=== PATIENT | female | born 1990 | race Caucasian/White ===

== ENCOUNTER 2019-03-22 20:01 | Emergency (ER) | payer SELFPAY ==
[2019-03-22 20:20] VITALS: BP 147/93
[2019-03-22] MEDS ORDERED: HYDROmorphone 1 MG/ML Syringe IVPUSH ONE (21:55)
[2019-03-22] MEDS ORDERED: Ketorolac 30 MG/ML SDV IVPUSH STA (21:55)
[2019-03-22] MEDS ORDERED: Tamsulosin 0.4 MG Cap.ER PO ONE (21:55)
[2019-03-22] MEDS ORDERED: Ondansetron 4 MG/2 ML SDV IVPUSH ONE (21:55)
--- NOTE | 2019-03-22 21:58 | EDM.PDOC ---
ED HPI GENERAL MEDICAL PROBLEM - General Chief Complaint: Abdominal Pain Stated Complaint: ABDOMINAL PAIN Time Seen by Provider: 03/22/19 21:20 Source of Information: Reports: Patient, RN Notes Reviewed, Other (Friend) History Limitations: Reports: No Limitations - History of Present Illness INITIAL COMMENTS - FREE TEXT/NARRATIVE: The patient states that she developed sudden onset left flank pain, sharp in character, and suprapubic cramps around 17:00 this evening. The pain is constant , and she has not identified any modifiers. She has had nausea, but no emesis. No associated fever, constipation, diarrhea, or urinary symptoms. No gross hematuria. No vaginal bleeding. The patient states that her symptoms are similar to when she had a ruptured ovarian cyst, except that that pain was intermittent, while this pain is constant. The patient has not taken any [id number] home remedies to treat her symptoms. The patient does not have a PCP, although has seen Princess Montes for gynecologic issues. Left Lower Abdomen Pain Score (Numeric/FACES): 8 - Related Data Allergies Allergy/AdvReac Type Severity Reaction Status Date / Time prednisone Allergy Severe Chest Verified 03/22/19 20:20 Presssure sulfamethoxazole AdvReac Severe Vomiting Verified 03/22/19 20:20 [From Bactrim] trimethoprim [From Bactrim] AdvReac Severe Vomiting Verified 03/22/19 20:20 hydrocodone AdvReac Intermediate Depression Verified 03/22/19 20:20 Home Meds: Home Meds Ondansetron [Zofran ODT] 1 tab PO Q8H PRN #10 tab.dis 03/22/19 [Rx] Tamsulosin HCl [Flomax] 1 cap PO QPM PRN #5 cap.er.24h 03/22/19 [Rx] Nitrofurantoin Monohyd/M-Cryst [Macrobid 100 mg Capsule] 1 cap PO Q12H #10 capsule 03/23/19 [Rx] traMADol [Ultram] 1 - 2 tab PO Q6H PRN #20 tab 03/23/19 [Rx] 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: Polycystic Ovaries (untreated) Endocrine/Metabolic History: Reports: Obesity/BMI 30+ - Past Surgical History HEENT Surgical History: Reports: Oral Surgery (dental extractions) Social & Family History - Family History Cardiac: Reports: Hypertension Endocrine/Metabolic: Reports: Diabetes, type II - Tobacco Use Smoking Status *Q: Current Every Day Smoker Years of Tobacco use: 15 Packs/Tins Daily: 1 - Caffeine Use Caffeine Use: Reports: Soda - Alcohol Use Alcohol Use History: Yes Alcohol Use Frequency: Socially - Recreational Drug Use Recreational Drug Use: Yes Drug Use in Last 12 Months: No Recreational Drug Type: Reports: Marijuana/Hashish (last smoked around 2008) - Living Situation & Occupation Living situation: Reports: , Alone Occupation: Unemployed ED ROS GENERAL - Review of Systems Review Of Systems: ROS reveals no pertinent complaints other than HPI. ED EXAM, RENAL/ - Physical Exam Exam: See Below Exam Limited By: No Limitations General Appearance: Alert, WD/WN, Mild Distress (Appears uncomfortable) Eye Exam: Bilateral Eye: EOMI, Normal Inspection Ears: Normal External Exam, Hearing Grossly Normal Nose: Normal Inspection Throat/Mouth: Normal Inspection, Normal Lips, Normal Voice, No Airway Compromise Head: Atraumatic, Normocephalic Neck: Normal Inspection, Full Range of Motion Respiratory/Chest: No Respiratory Distress, Lungs Clear, Normal Breath Sounds, No Accessory Muscle Use Cardiovascular: Normal Peripheral Pulses, Regular Rate, Rhythm, No Gallop, No JVD, No Murmur, No Rub GI/Abdominal: Normal Bowel Sounds, Soft, Non-Tender (including suprapubically), No Organomegaly, No Distention, No Abnormal Bruit, No Mass, Other (Obese) (Female) Exam: Deferred Rectal (Female) Exam: Deferred Back Exam: Normal Inspection, Full Range of Motion. No: CVA Tenderness (L), CVA Tenderness (R) Extremities: Normal Inspection, Normal Range of Motion, No Pedal Edema, Normal Capillary Refill Neurological: Alert, Oriented, Normal Cognition, No Motor/Sensory Deficits Psychiatric: Normal Affect Skin Exam: Warm, Dry, Intact, Normal Color, No Rash Course - Vital Signs Last Recorded V/S: Last Vital Signs Temp 36.1 C 03/22/19 20:16 Pulse 93 03/22/19 20:16 Resp 14 03/22/19 20:16 BP 147/93 H 03/22/19 20:16 Pulse Ox 99 03/22/19 20:16 - Orders/Labs/Meds Orders: Active Orders 24 hr Category Date Time Status Strain Urine [RC] ASDIRECTED Care 03/22/19 21:55 Active Abdomen Pelvis wo Cont [CT] Stat Exams 03/22/19 21:55 Taken CULTURE URINE [RM] Stat Lab 03/22/19 21:22 Received Labs: Laboratory Tests 03/22/19 03/22/19 03/22/19 Range/Units 22:10 22:10 22:54 WBC 16.58 H (3.98-10.04) K/mm3 RBC 5.35 H (3.98-5.22) M/mm3 Hgb 15.7 (11.2-15.7) gm/L Hct 47.2 H (34.1-44.9) % MCV 88.2 (79.4-94.8) fl MCH 29.3 (25.6-32.2) pg MCHC 33.3 (32.2-35.5) g/dl RDW Std Deviation 43.1 (36.4-46.3) fL Plt Count 280 (182-369) K/mm3 MPV 11.5 (9.4-12.3) fl Neutrophils % (Manual) 81 H (40-60) % Band Neutrophils % 3 (0-10) % Lymphocytes % (Manual) 10 L (20-40) % Atypical Lymphs % 0 % Monocytes % (Manual) 5 (2-10) % Eosinophils % (Manual) 0 L (0.7-5.8) % Basophils % (Manual) 1 (0.1-1.2) Toxic Granulation 1+ slight Platelet Estimate Adequate Plt Morphology Comment Normal RBC Morph Comment Normal Sodium 138 (136-145) mEq/L Potassium 3.9 (3.5-5.1) mEq/L Chloride 102 (98-107) mEq/L Carbon Dioxide 24 (21-32) mEq/L Anion Gap 15.9 H (5-15) BUN 9 (7-18) mg/dL Creatinine 1.1 H (0.55-1.02) mg/dL Est Cr Clr Drug Dosing 75.44 mL/min Estimated GFR (MDRD) 58 (>60) mL/min BUN/Creatinine Ratio 8.2 L (14-18) Glucose 121 H (74-106) mg/dL Calcium 9.2 (8.5-10.1) mg/dL Total Bilirubin 0.9 (0.2-1.0) mg/dL AST 34 (15-37) U/L ALT 56 (14-59) U/L Alkaline Phosphatase 110 (46-116) U/L Total Protein 8.1 (6.4-8.2) g/dl Albumin 4.1 (3.4-5.0) g/dl Globulin 4.0 gm/dL Albumin/Globulin Ratio 1.0 (1-2) Urine Color Yellow (Yellow) Urine Appearance Slt cloudy H (Clear) Urine pH 5.5 (5.0-8.0) Ur Specific [place] > or = 1.030 (1.005-1.030) Urine Protein 2+ H (Negative) Urine Glucose (UA) Negative (Negative) Urine Ketones Trace H (Negative) Urine Occult Blood 2+ H (Negative) Urine Nitrite Negative (Negative) Urine Bilirubin 1+ H (Negative) Urine Urobilinogen 0.2 (0.2-1.0) Ur Leukocyte Esterase 2+ H (Negative) Urine RBC 30-40 H (0-5) /hpf Urine WBC >100 H (0-5) /hpf Urine WBC Clumps Moderate (NOT SEEN) /hpf Ur Squamous Epith Cells 5-10 H (0-5) /hpf Calcium Oxalate Crystal Moderate H (NONE) Urine Bacteria Moderate H (FEW) /hpf Hyaline Casts 0-5 (0-5) /lpf Urine Mucus Many H (FEW) /hpf Urine HCG, Qual (NEGATIVE) 03/22/19 Range/Units 22:54 WBC (3.98-10.04) K/mm3 RBC (3.98-5.22) M/mm3 Hgb (11.2-15.7) gm/L Hct (34.1-44.9) % MCV (79.4-94.8) fl MCH (25.6-32.2) pg MCHC (32.2-35.5) g/dl RDW Std Deviation (36.4-46.3) fL Plt Count (182-369) K/mm3 MPV (9.4-12.3) fl Neutrophils % (Manual) (40-60) % Band Neutrophils % (0-10) % Lymphocytes % (Manual) (20-40) % Atypical Lymphs % % Monocytes % (Manual) (2-10) % Eosinophils % (Manual) (0.7-5.8) % Basophils % (Manual) (0.1-1.2) Toxic Granulation Platelet Estimate Plt Morphology Comment RBC Morph Comment Sodium (136-145) mEq/L Potassium (3.5-5.1) mEq/L Chloride (98-107) mEq/L Carbon Dioxide (21-32) mEq/L Anion Gap (5-15) BUN (7-18) mg/dL Creatinine (0.55-1.02) mg/dL Est Cr Clr Drug Dosing mL/min Estimated GFR (MDRD) (>60) mL/min BUN/Creatinine Ratio (14-18) Glucose (74-106) mg/dL Calcium (8.5-10.1) mg/dL Total Bilirubin (0.2-1.0) mg/dL AST (15-37) U/L ALT (14-59) U/L Alkaline Phosphatase (46-116) U/L Total Protein (6.4-8.2) g/dl Albumin (3.4-5.0) g/dl Globulin gm/dL Albumin/Globulin Ratio (1-2) Urine Color (Yellow) Urine Appearance (Clear) Urine pH (5.0-8.0) Ur Specific [place] (1.005-1.030) Urine Protein (Negative) Urine Glucose (UA) (Negative) Urine Ketones (Negative) Urine Occult Blood (Negative) Urine Nitrite (Negative) Urine Bilirubin (Negative) Urine Urobilinogen (0.2-1.0) Ur Leukocyte Esterase (Negative) Urine RBC (0-5) /hpf Urine WBC (0-5) /hpf Urine WBC Clumps (NOT SEEN) /hpf Ur Squamous Epith Cells (0-5) /hpf Calcium Oxalate Crystal (NONE) Urine Bacteria (FEW) /hpf Hyaline Casts (0-5) /lpf Urine Mucus (FEW) /hpf Urine HCG, Qual Negative (NEGATIVE) Meds: Medications Discontinued Medications Generic Name Dose Route Start Last Admin Trade Name Freq PRN Reason Stop Dose Admin Hydromorphone HCl 1 mg 03/22/19 21:55 03/22/19 22:12 Dilaudid IVPUSH 03/22/19 21:56 1 mg ONETIME ONE Administration Sodium Chloride 1,000 mls @ 150 mls/hr 03/22/19 22:00 03/22/19 22:08 Normal Saline IV 150 mls/hr ASDIRECTED BRANDIE Administration Ketorolac Tromethamine 30 mg 03/22/19 21:55 03/22/19 22:10 Toradol IVPUSH 03/22/19 21:56 30 mg ONETIME STA Administration Nitrofurantoin Macrocrystals 100 mg 03/23/19 00:09 03/23/19 00:18 Macrobid PO 03/23/19 00:10 100 mg ONETIME ONE Administration Ondansetron HCl 4 mg 03/22/19 21:55 03/22/19 22:09 Zofran IVPUSH 03/22/19 21:56 4 mg ONETIME ONE Administration Tamsulosin HCl 0.4 mg 03/22/19 21:55 03/22/19 22:10 Flomax PO 03/22/19 21:56 0.4 mg ONETIME ONE Administration - Re-Assessments/Exams Free Text/Narrative Re-Assessment/Exam: 03/22/19 21:57 Although the patient's physical exam is benign, her history is consistent with a left ureterolith. A urinalysis and urine test have been ordered, along with blood work and a CT scan of the abdomen and pelvis without contrast. In the meantime, the patient will receive IV Dilaudid, oral Flomax, IV fluid, IV Toradol, and IV Zofran. 03/22/19 23:38 CT of the abdomen and pelvis without contrast is read by Maximiliano as: 3 mm left UPJ stone causing mild hydronephrosis. Many punctate sclerotic bone lesions most likely bone islands. 03/22/19 23:47 Test results discussed with the patient and her friend. I don't have the final results of the patient's urinalysis yet, but, presuming that she does not have a UTI, I will discharge the patient home with prescriptions for Hartwell, Flomax, and Zofran. I would like her to stay adequately hydrated and strain all of her urine. I will give her a number for Urologist, however, I explained to the patient that at 3 mm, the patient will likely pass this stone on her own. 03/23/19 00:10 The patient's urinalysis is consistent with a UTI. I have ordered a urine culture. The patient states that she is allergic to trimethoprim/ sulfamethoxazole. I will therefore start her on oral nitrofurantoin, and prescribe a five-day course. I will refer her to the clinic, to check on the urine culture results, on , 03/26/2019. 03/23/19 00:40 Informed by Aurea AGUILA that the patient would prefer a different prescription then Hartwell, as she reports an allergy to Hartwell. The chart indicates nausea and vomiting, which can occur with any opioid, nevertheless, I will cancel her prescription for Hartwell and prescribe tramadol. Departure - Departure Time of Disposition: 23:48 Disposition: Home, Self-Care 01 Condition: Good Clinical Impression: Ureterolithiasis - Discharge Information *PRESCRIPTION DRUG MONITORING PROGRAM REVIEWED*: Not Applicable *COPY OF PRESCRIPTION DRUG MONITORING REPORT IN PATIENT ANOOP: Not Applicable Prescriptions: Nitrofurantoin Monohyd/M-Cryst [Macrobid 100 mg Capsule] 1 cap PO Q12H #10 capsule Ondansetron [Zofran ODT] 1 tab PO Q8H PRN #10 tab.dis PRN Reason: Nausea/Vomiting Tamsulosin HCl [Flomax] 1 cap PO QPM PRN #5 cap.er.24h PRN Reason: Pain traMADol [Ultram] 1 - 2 tab PO Q6H PRN #20 tab PRN Reason: Pain (Severe 7-10) Instructions: Kidney Stones, [id number] Referrals: Nghia Villareal MD [Ordering Only Provider] - Aura Warner PA [Physician Dispensing Operator] - Forms: ED Department Discharge Additional Instructions: You were seen in the emergency room for sudden onset left flank pain radiating to your lower abdomen. Workup in the ER included blood work, a urinalysis, a urine test, and a CT scan of your abdomen and pelvis without contrast. Your workup found that you have a 3 mm stone in your left ureter. This is the cause of your pain. Based on the size and location of the stone, you will most likely pass it on your own. In addition to the stone, your urinalysis was consistent with a urinary tract infection. You have been started on the antibiotic nitrofurantoin (Macrobid). Take one tablet of nitrofurantoin every 12 hours, starting tomorrow morning, Saturday, 03/23, as prescribed. Finish the entire 5 day course unless told otherwise by a doctor. Take scyn-trs-btptlav ibuprofen, 2-3 tablets (400-600 mg) every 8 hours, with food, as needed for discomfort. You may take 1-2 tablets of the opioid pain reliever Hartwell up to every 6 hours, as needed for pain not relieved by ibuprofen. If you take Hartwell, do not drive for 10 hours afterwards. Hartwell may cause constipation, so consider taking a stool softener. Take one tablet of the anti-spasm medicine tamsulosin (Flomax) every evening, starting tomorrow evening, 03/23/2019, as needed for pain. Dissolve one tablet of the anti-nausea medicine Zofran on your tongue up to every 8 hours, as needed for nausea/vomiting. Stay adequately hydrated and strain all of your urine. If you capture the stone , take it to the clinic for analysis. Follow-up with Aura Warner, or one of the other providers in the clinic, this coming , 03/26/2019, in order to have them check on the urine culture results, to make sure that you are on the correct antibiotic. If you are still having left flank pain by the end of this coming week, please follow-up with the Urologist Dr. Nghia Villareal, in [place], for further evaluation. If any other problems, please do not hesitate to return to the ER. - My Orders Last 24 Hours: My Active Orders 03/22/19 21:22 CULTURE URINE [RM] Stat 03/22/19 21:55 Strain Urine [RC] ASDIRECTED Abdomen Pelvis wo Cont [CT] Stat - Assessment/Plan Last 24 Hours: My Active Orders 03/22/19 21:22 CULTURE URINE [RM] Stat 03/22/19 21:55 Strain Urine [RC] ASDIRECTED Abdomen Pelvis wo Cont [CT] Stat
[2019-03-22] MEDS ORDERED: Sodium Chloride 0.9% 1,000 ML IV SCH (22:00)
[2019-03-23] MEDS ORDERED: Nitrofurantoin Monohydrate/Macrocrystalline 100 MG Cap PO ONE (00:09)
--- NOTE | 2019-03-23 11:18 | CT ---
CT abdomen and pelvis Technique: Multiple axial sections were obtained from above the dome of the diaphragm inferiorly through the pubic symphysis. Intravenous and oral contrast was not utilized. Study has been performed as a ureteral stone protocol. Comparison: No previous abdominal CT exam. Findings: 4 mm calcification is identified within the proximal left ureter near the UPJ. This causes proximal hydronephrosis. No other abnormal calcifications are seen along the course of the ureters. No abnormal calcifications are identified within the kidneys. Small portion of the visualized lung bases show nothing acute. Liver contains no focal abnormality. Spleen appears within normal limits. Adrenal glands show no nodule. Pancreas is within normal limits. Gallbladder contains no calcified gallstones. Aorta shows no aneurysm. No retroperitoneal adenopathy or mesenteric abnormalities are seen. No pelvic mass or adenopathy is seen. No free fluid or inflammatory change is seen. Appendix is seen and is normal in size. 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 Impression: 1. Obstructing 4 mm stone within the proximal left ureter near the UPJ. This finding causes mild proximal hydronephrosis. 2. Incidental bone findings as noted above. 3. Noncontrast CT study of the abdomen and pelvis. Diagnostic code #3 I agree with preliminary report from [facility], finalized on 03/23/19, 12:30 AM Central Time
== END 2019-03-23 00:52 | disposition home or self-care (01) ==
LOC: JD.ED 20:01
DX: N13.2 Hydronephrosis with renal and ureteral calculous obstruction (principal); F17.210 Nicotine dependence, cigarettes, uncomplicated; Z88.8 Allergy status to other drugs, medicaments and biological substances; Z88.1 Allergy status to other antibiotic agents; Z88.2 Allergy status to sulfonamides; Z88.5 Allergy status to narcotic agent; Z79.899 Other long term (current) drug therapy
CPT/HCPCS: 36415; 74176; 80053; 81001; 81025; 85007; 85027; 87086; 96361; 96374; 96375; 99284; A9270; J1170; J1885; J2405; J7040

== ENCOUNTER 2019-03-24 15:04 | Emergency (ER) | payer SELFPAY ==
[2019-03-24 15:16] VITALS: BP 110/77
[2019-03-24] MEDS ORDERED: Ondansetron 4 MG/2 ML SDV IVPUSH ONE ×2 (15:19→16:46)
[2019-03-24] MEDS ORDERED: Sodium Chloride 0.9% 500 ML IV ONE (15:20)
[2019-03-24] MEDS ORDERED: Sodium Chloride 0.9% 1,000 ML IV ONE (15:38)
[2019-03-24] MEDS ORDERED: Sodium Chloride 0.9% 10 ML Syringe FLUSH PRN (15:39)
[2019-03-24] MEDS ORDERED: Ketorolac 30 MG/ML SDV IVPUSH ONE (15:39)
[2019-03-24] MEDS ORDERED: cefTRIAXone 2 GM in Sodium Chloride 0.9% 100 ML IV STA (16:33)
[2019-03-24] MEDS ORDERED: Metoclopramide 10 MG/2 ML SDV IVPUSH ONE (17:22)
--- NOTE | 2019-03-24 17:54 | CT ---
CT abdomen and pelvis Technique: Multiple axial sections were obtained from above the dome of diaphragm inferiorly through the pubic symphysis. Intravenous and oral contrast not utilized. Study has been performed as a ureteral stone protocol. Findings: Small 4 mm calcification is identified within the left lung base. Fatty infiltration is seen within the liver. Spleen appears normal. Gallbladder contains no calcified gallstones. Pancreas is normal. Adrenal glands show no nodule. Small obstructing stone is again noted within the proximal left ureter near the UPJ. This measures about 4 mm in size and is unchanged in position from previous exam. No other abnormal calcifications are seen along the course of the ureters. No abnormal calcifications are seen within the kidneys. No retroperitoneal adenopathy or mesenteric abnormalities are seen. No pelvic mass or adenopathy is seen. No free fluid or acute inflammatory change is seen. Bone window settings were reviewed which shows mild degenerative change within the spine. 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 Impression: 1. Stable appearing proximal 4 mm obstructing stone within the proximal left ureter. No change in location of this stone is seen from previous CT exam. 2. 4 mm nodule within the left lung base. If patient is not a smoker, this can be ignored. If patient is a smoker, recommend repeat noncontrast chest CT study in one year. 3. Fatty infiltration within the liver. 4. Incidental bony findings. Diagnostic code #3
[2019-03-24] MEDS ORDERED: Piperacillin/Tazobactam 4.5 GM in Sodium Chloride 0.9% 100 ML IV STA (18:15)
--- NOTE | 2019-03-24 18:18 | EDM.PDOC ---
ED HPI GENERAL MEDICAL PROBLEM - General Chief Complaint: Gastrointestinal Problem Stated Complaint: VOMITING Time Seen by Provider: 03/24/19 15:37 Source of Information: Reports: Patient History Limitations: Reports: No Limitations - History of Present Illness INITIAL COMMENTS - FREE TEXT/NARRATIVE: 28-year-old female presents for evaluation and treatment of nausea, vomiting and diarrhea. Patient was seen in the ER 2 days ago. She is fond of urinary tract infection and kidney stone. She started on Macrobid. States she's been taking this as prescribed. Does not feel that the stone has passed as she continues to have pain to the left flank. She now has abdominal pain as well. She's had 6 or 7 episodes of diarrhea today, no blood in the stool. She denies any dysuria or hematuria. Reports feeling feverish and chilled. Patient history of PCOS. Duration: Day(s): (2) Left Lower Back Pain Score (Numeric/FACES): 9 - Related Data Allergies Allergy/AdvReac Type Severity Reaction Status Date / Time prednisone Allergy Severe Chest Verified 03/24/19 15:16 Presssure sulfamethoxazole AdvReac Severe Vomiting Verified 03/24/19 15:16 [From Bactrim] trimethoprim [From Bactrim] AdvReac Severe Vomiting Verified 03/24/19 15:16 hydrocodone AdvReac Intermediate Depression Verified 03/24/19 15:16 Home Meds: Home Meds Ondansetron [Zofran ODT] 1 tab PO Q8H PRN #10 tab.dis 03/22/19 [Rx] Tamsulosin HCl [Flomax] 1 cap PO QPM PRN #5 cap.er.24h 03/22/19 [Rx] Nitrofurantoin Monohyd/M-Cryst [Macrobid 100 mg Capsule] 1 cap PO Q12H #10 capsule 03/23/19 [Rx] traMADol [Ultram] 1 - 2 tab PO Q6H PRN #20 tab 03/23/19 [Rx] Past Medical History - Past Health History Medical/Surgical History: Denies Medical/Surgical History 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: Polycystic Ovaries Endocrine/Metabolic History: Reports: Obesity/BMI 30+ - Past Surgical History HEENT Surgical History: Reports: Oral Surgery Social & Family History - Family History Cardiac: Reports: Hypertension Endocrine/Metabolic: Reports: Diabetes, type II - Tobacco Use Smoking Status *Q: Current Every Day Smoker Years of Tobacco use: 15 Packs/Tins Daily: 0.5 - Caffeine Use Caffeine Use: Reports: Soda - Recreational Drug Use Recreational Drug Use: No - Living Situation & Occupation Living situation: Reports: , Alone Occupation: Unemployed ED ROS GENERAL - Review of Systems Review Of Systems: See Below Constitutional: Reports: Fever, Chills, Malaise GI/Abdominal: Reports: Abdominal Pain, Diarrhea, Nausea, Vomiting : Reports: Flank Pain (Left). Denies: Frequency, Hematuria ED EXAM, RENAL/ - Physical Exam Exam: See Below Exam Limited By: No Limitations General Appearance: Alert, WD/WN, Mild Distress, Obese Ears: Normal External Exam Nose: Normal Inspection Throat/Mouth: Normal Inspection, Normal Lips, Normal Voice, No Airway Compromise Respiratory/Chest: No Respiratory Distress, Lungs Clear, Normal Breath Sounds Cardiovascular: Normal Peripheral Pulses, No Murmur, Tachycardia GI/Abdominal: Normal Bowel Sounds, Soft, Non-Tender Neurological: Alert, Oriented, Normal Cognition Psychiatric: Normal Affect, Normal Mood Skin Exam: Warm, Dry, Normal Color Course - Vital Signs Last Recorded V/S: Last Vital Signs Temp 98.7 F 03/24/19 15:14 Pulse 141 H 03/24/19 15:14 Resp 16 03/24/19 15:14 BP 110/77 03/24/19 15:14 Pulse Ox 95 03/24/19 15:14 - Orders/Labs/Meds Orders: Active Orders 24 hr Category Date Time Status Peripheral IV Care [RC] . DIRECTED Care 03/24/19 15:39 Active NPO Now [Nothing per Oral Now Diet] [DIET] Diet 03/25/19 Breakfast Active Abdomen 1V Flat [CR] Stat Exams 03/24/19 15:39 Taken CULTURE BLOOD [BC] Stat Lab 03/24/19 16:00 Received CULTURE BLOOD [BC] Stat Lab 03/24/19 16:15 Received CULTURE URINE [RM] Stat Lab 03/24/19 16:38 Received Piperacillin/Tazobactam [Piperacil-Tazobact] 4.5 gm Med 03/24/19 18:15 Active Sodium Chloride 0.9% [Normal Saline] 100 ml IV NOW Sodium Chloride 0.9% [Saline Flush] Med 03/24/19 15:39 Active 10 ml FLUSH ASDIRECTED PRN Blood Culture x2 Reflex Set [OM.PC] Stat Oth 03/24/19 15:40 Ordered Peripheral IV Insertion Adult [OM.PC] Routine Oth 03/24/19 15:39 Ordered Medication Orders Piperacillin Sod/Tazobactam (Sod 4.5 gm/ Sodium Chloride) 100 mls @ 25 mls/hr IV NOW STA Stop: 03/24/19 22:14 Sodium Chloride (Saline Flush) 10 ml FLUSH ASDIRECTED PRN PRN Reason: Keep Vein Open Last Admin: 03/24/19 15:56 Dose: 10 ml Labs: Laboratory Tests 03/24/19 03/24/19 03/24/19 Range/Units 15:25 15:25 16:15 WBC 18.79 H (3.98-10.04) K/mm3 RBC 4.80 (3.98-5.22) M/mm3 Hgb 14.0 D (11.2-15.7) gm/L Hct 42.2 (34.1-44.9) % MCV 87.9 (79.4-94.8) fl MCH 29.2 (25.6-32.2) pg MCHC 33.2 (32.2-35.5) g/dl RDW Std Deviation 45.2 (36.4-46.3) fL Plt Count 130 L D (182-369) K/mm3 MPV 12.1 (9.4-12.3) fl Neutrophils % (Manual) 93 H (40-60) % Band Neutrophils % 2 (0-10) % Lymphocytes % (Manual) 1 L (20-40) % Atypical Lymphs % 0 % Monocytes % (Manual) 3 (2-10) % Eosinophils % (Manual) 0 L (0.7-5.8) % Basophils % (Manual) 1 (0.1-1.2) Platelet Estimate Adequate Plt Morphology Comment Normal RBC Morph Comment Normal Sodium 132 L (136-145) mEq/L Potassium 3.3 L (3.5-5.1) mEq/L Chloride 98 (98-107) mEq/L Carbon Dioxide 21 (21-32) mEq/L Anion Gap 16.3 H (5-15) BUN 20 H (7-18) mg/dL Creatinine 2.0 H (0.55-1.02) mg/dL Est Cr Clr Drug Dosing 41.49 mL/min Estimated GFR (MDRD) 29 (>60) mL/min BUN/Creatinine Ratio 10.0 L (14-18) Glucose 140 H (74-106) mg/dL Lactic Acid 2.0 (0.4-2.0) mmol/L Calcium 8.6 (8.5-10.1) mg/dL Total Bilirubin 2.4 H (0.2-1.0) mg/dL AST 23 (15-37) U/L ALT 34 (14-59) U/L Alkaline Phosphatase 114 (46-116) U/L C-Reactive Protein 40.0 H* (<1.0) mg/dL Total Protein 7.2 (6.4-8.2) g/dl Albumin 3.1 L (3.4-5.0) g/dl Globulin 4.1 gm/dL Albumin/Globulin Ratio 0.8 L (1-2) Urine Color (Yellow) Urine Appearance (Clear) Urine pH (5.0-8.0) Ur Specific [place] (1.005-1.030) Urine Protein (Negative) Urine Glucose (UA) (Negative) Urine Ketones (Negative) Urine Occult Blood (Negative) Urine Nitrite (Negative) Urine Bilirubin (Negative) Urine Urobilinogen (0.2-1.0) Ur Leukocyte Esterase (Negative) Urine RBC (0-5) /hpf Urine WBC (0-5) /hpf Ur Squamous Epith Cells (0-5) /hpf Urine Bacteria (FEW) /hpf Urine Mucus (FEW) /hpf 03/24/19 Range/Units 16:38 WBC (3.98-10.04) K/mm3 RBC (3.98-5.22) M/mm3 Hgb (11.2-15.7) gm/L Hct (34.1-44.9) % MCV (79.4-94.8) fl MCH (25.6-32.2) pg MCHC (32.2-35.5) g/dl RDW Std Deviation (36.4-46.3) fL Plt Count (182-369) K/mm3 MPV (9.4-12.3) fl Neutrophils % (Manual) (40-60) % Band Neutrophils % (0-10) % Lymphocytes % (Manual) (20-40) % Atypical Lymphs % % Monocytes % (Manual) (2-10) % Eosinophils % (Manual) (0.7-5.8) % Basophils % (Manual) (0.1-1.2) Platelet Estimate Plt Morphology Comment RBC Morph Comment Sodium (136-145) mEq/L Potassium (3.5-5.1) mEq/L Chloride (98-107) mEq/L Carbon Dioxide (21-32) mEq/L Anion Gap (5-15) BUN (7-18) mg/dL Creatinine (0.55-1.02) mg/dL Est Cr Clr Drug Dosing mL/min Estimated GFR (MDRD) (>60) mL/min BUN/Creatinine Ratio (14-18) Glucose (74-106) mg/dL Lactic Acid (0.4-2.0) mmol/L Calcium (8.5-10.1) mg/dL Total Bilirubin (0.2-1.0) mg/dL AST (15-37) U/L ALT (14-59) U/L Alkaline Phosphatase (46-116) U/L C-Reactive Protein (<1.0) mg/dL Total Protein (6.4-8.2) g/dl Albumin (3.4-5.0) g/dl Globulin gm/dL Albumin/Globulin Ratio (1-2) Urine Color Yellow (Yellow) Urine Appearance Slt cloudy H (Clear) Urine pH 6.0 (5.0-8.0) Ur Specific [place] 1.025 (1.005-1.030) Urine Protein 2+ H (Negative) Urine Glucose (UA) Negative (Negative) Urine Ketones Negative (Negative) Urine Occult Blood 2+ H (Negative) Urine Nitrite Negative (Negative) Urine Bilirubin Negative (Negative) Urine Urobilinogen 0.2 (0.2-1.0) Ur Leukocyte Esterase 1+ H (Negative) Urine RBC 0-5 (0-5) /hpf Urine WBC 50-75 H (0-5) /hpf Ur Squamous Epith Cells 5-10 H (0-5) /hpf Urine Bacteria Many H (FEW) /hpf Urine Mucus Not seen (FEW) /hpf Meds: Medications Generic Name Dose Route Start Last Admin Trade Name Freq PRN Reason Stop Dose Admin Piperacillin Sod/Tazobactam 100 mls @ 25 mls/hr 03/24/19 18:15 Sod 4.5 gm/ Sodium Chloride IV 03/24/19 22:14 NOW STA Sodium Chloride 10 ml 03/24/19 15:39 03/24/19 15:56 Saline Flush FLUSH 10 ml ASDIRECTED PRN Administration Keep Vein Open Discontinued Medications Generic Name Dose Route Start Last Admin Trade Name Freq PRN Reason Stop Dose Admin Sodium Chloride 500 mls @ 999 mls/hr 03/24/19 15:20 03/24/19 15:25 Normal Saline IV 03/24/19 15:50 999 mls/hr ONETIME ONE Administration Sodium Chloride 1,000 mls @ 999 mls/hr 03/24/19 15:38 03/24/19 16:42 Normal Saline IV 03/24/19 16:38 999 mls/hr ONETIME ONE Administration Ceftriaxone Sodium 2 gm/ 100 mls @ 200 mls/hr 03/24/19 16:33 03/24/19 16:49 Sodium Chloride IV 03/24/19 17:02 200 mls/hr NOW STA Administration Ketorolac Tromethamine 30 mg 03/24/19 15:39 03/24/19 15:56 Toradol IVPUSH 03/24/19 15:40 30 mg ONETIME ONE Administration Metoclopramide HCl 7.5 mg 03/24/19 17:22 03/24/19 17:27 Reglan IVPUSH 03/24/19 17:23 7.5 mg ONETIME ONE Administration Ondansetron HCl 4 mg 03/24/19 15:19 03/24/19 15:30 Zofran IVPUSH 03/24/19 15:20 4 mg ONETIME ONE Administration Ondansetron HCl 4 mg 03/24/19 16:46 03/24/19 16:49 Zofran IVPUSH 03/24/19 16:47 4 mg ONETIME ONE Administration - Radiology Interpretation Free Text/Narrative:: CT abdomen and pelvis Technique: Multiple axial sections were obtained from above the dome of diaphragm inferiorly through the pubic symphysis. Intravenous and oral contrast not utilized. Study has been performed as a ureteral stone protocol. Findings: Small 4 mm calcification is identified within the left lung base. Fatty infiltration is seen within the liver. Spleen appears normal. Gallbladder contains no calcified gallstones. Pancreas is normal. Adrenal glands show no nodule. Small obstructing stone is again noted within the proximal left ureter near the UPJ. This measures about 4 mm in size and is unchanged in position from previous exam. No other abnormal calcifications are seen along the course of the ureters. No abnormal calcifications are seen within the kidneys. No retroperitoneal adenopathy or mesenteric abnormalities are seen. No pelvic mass or adenopathy is seen. No free fluid or acute inflammatory change is seen. Bone window settings were reviewed which shows mild degenerative change within the spine. 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 Impression: 1. Stable appearing proximal 4 mm obstructing stone within the proximal left ureter. No change in location of this stone is seen from previous CT exam. 2. 4 mm nodule within the left lung base. If patient is not a smoker, this can be ignored. If patient is a smoker, recommend repeat noncontrast chest CT study in one year. 3. Fatty infiltration within the liver. 4. Incidental bony findings. - Re-Assessments/Exams Free Text/Narrative Re-Assessment/Exam: 03/24/19 18:33 Patient requested Toradol for pain. She was given this. This has been providing her adequate pain relief. Has requested several medications for nausea but feels okay at this time. Labs and imaging has returned. Decided to re-CT scan the patient to determine if the stone is still present and it is there. At this point it looks like she is uroseptic from her UTI and stone. I called [facility] in [place] and spoke with Dr. Villareal. He recommends Zosyn 4.5g and nothing by mouth. Plan he'll take her to the OR right away to place a stent to remove the stone. Will send her by ambulance. Dr. Cooper accepting. Patient is aware of results and the plan at this time. Declined anything further for pain or nausea at this point. Departure - Departure Time of Disposition: 18:35 Disposition: DC/Tfer to Acute Hospital 02 Condition: Serious Clinical Impression: Sepsis, Kidney stone, UTI (urinary tract infection) - Discharge Information *PRESCRIPTION DRUG MONITORING PROGRAM REVIEWED*: No *COPY OF PRESCRIPTION DRUG MONITORING REPORT IN PATIENT ANOOP: No Referrals: PCP,None [Primary Care Provider] - Forms: ED Department Discharge Additional Instructions: Plan patient will be a direct admit patient to Dr. Cooper at [facility] in [place]. Dr. Villareal urology is aware and plans to take her immediately to the OR for stent placement. - My Orders Last 24 Hours: My Active Orders 03/24/19 15:39 Peripheral IV Care [RC] . DIRECTED Abdomen 1V Flat [CR] Stat Sodium Chloride 0.9% [Saline Flush] 10 ml FLUSH ASDIRECTED PRN Peripheral IV Insertion Adult [OM.PC] Routine 03/24/19 15:40 Blood Culture x2 Reflex Set [OM.PC] Stat 03/24/19 16:00 CULTURE BLOOD [BC] Stat 03/24/19 16:15 CULTURE BLOOD [BC] Stat 03/24/19 16:38 CULTURE URINE [RM] Stat 03/24/19 18:15 Piperacillin/Tazobactam [Piperacil-Tazobact] 4.5 gm Sodium Chloride 0.9% [ Normal Saline] 100 ml IV NOW 03/25/19 Breakfast NPO Now [Nothing per Oral Now Diet] [DIET] - Assessment/Plan Last 24 Hours: My Active Orders 03/24/19 15:39 Peripheral IV Care [RC] . DIRECTED Abdomen 1V Flat [CR] Stat Sodium Chloride 0.9% [Saline Flush] 10 ml FLUSH ASDIRECTED PRN Peripheral IV Insertion Adult [OM.PC] Routine 03/24/19 15:40 Blood Culture x2 Reflex Set [OM.PC] Stat 03/24/19 16:00 CULTURE BLOOD [BC] Stat 03/24/19 16:15 CULTURE BLOOD [BC] Stat 03/24/19 16:38 CULTURE URINE [RM] Stat 03/24/19 18:15 Piperacillin/Tazobactam [Piperacil-Tazobact] 4.5 gm Sodium Chloride 0.9% [ Normal Saline] 100 ml IV NOW 03/25/19 Breakfast NPO Now [Nothing per Oral Now Diet] [DIET]
--- NOTE | 2019-03-25 07:32 | CR ---
Abdomen: Supine view of the abdomen was obtained. Comparison: Prior CT abdomen and pelvis exam of 03/22/19. 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 Slight scoliosis is noted within the spine. Bowel gas pattern is normal. Previous obstructing stone is felt to be too small to definitely visualized by plain film study. Impression: 1. Previous obstructing stone too small to definitely see by plain film exam. 2. Other findings believed to be incidental. Diagnostic code #2
== END 2019-03-24 19:10 ==
LOC: JD.ED 15:04
DX: A41.9 Sepsis, unspecified organism (principal); N20.2 Calculus of kidney with calculus of ureter; N39.0 Urinary tract infection, site not specified; E66.9 Obesity, unspecified; F17.210 Nicotine dependence, cigarettes, uncomplicated; Z88.5 Allergy status to narcotic agent; Z88.8 Allergy status to other drugs, medicaments and biological substances; Z88.2 Allergy status to sulfonamides; Z79.899 Other long term (current) drug therapy; Z68.41 Body mass index [BMI] 40.0-44.9, adult
CPT/HCPCS: 36415; 74018; 74176; 80053; 81001; 83605; 85007; 85027; 86140; 87040; 87086; 87088; 87186; 96361; 96365; 96367; 96375; 96376; 99285; J0696; J1885; J2405; J2543; J2765; J7030; J7040; 99284